=== PATIENT | female | born 1990 | race Caucasian/White ===

== ENCOUNTER 2019-01-20 20:35 | Inpatient (IN) | payer OTHER ==
[2019-01-20] MEDS: DEXTROSE 5%-LACTATED RINGERS 1,000 ML IV SCH (21:00)
[2019-01-20] MEDS ORDERED: DINOPROSTONE 10 MG VAGINAL SUPPOSITORY VG ONE (21:17)
--- NOTE | 2019-01-20 21:23 | HP ---
Past Medical History - Admission Chief Complaint: Rupture of membrane History of Present Illness: 28 yo , @ 38 weeks gestation, EDC 02/02/19, admitted for spontaneous rupture of membrane. Upon admission there was gross pooling and cervix was 1-2cm dilated. History Source: Patient Limitations to Obtaining History: No Limitations - Past Medical History ...: 2 ...Para: 0 ...EDC by Sono: 02/02/19 - Past Surgical History Past Surgical History: Yes: None Hx Myomectomy: No Hx Transabdominal Cerclage: No - Alcohol/Substance Use Hx Alcohol Use: No History of Substance Use: reports: None - Social History Usual Living Arrangement: Yes: With Significant Other History of Recent Travel: No Home Medications - Allergies Allergies/Adverse Reactions: Allergies Allergy/AdvReac Type Severity Reaction Status Date / Time No Known Allergies Allergy Verified 01/20/19 20:57 - Home Medications Home Medications: Ambulatory Orders Acetaminophen [Tylenol -] 1,000 mg PO PRN PRN 01/16/19 Metoclopramide HCl [Reglan] 5 mg PO PRN PRN 01/16/19 Pnv No.95/Ferrous Fum/Folic AC [ Vitamin Tablet] 1 each PO DAILY Family Medical History Family History: Unremarkable Review of Systems - Review of Systems Constitutional: reports: No Symptoms Eyes: reports: No Symptoms HENT: reports: No Symptoms Neck: reports: No Symptoms Cardiovascular: reports: No Symptoms Respiratory: reports: No Symptoms Gastrointestinal: reports: No Symptoms Genitourinary: reports: Other (Leakage of fluid) Breasts: reports: No Symptoms Reported Musculoskeletal: reports: No Symptoms Integumentary: reports: No Symptoms Neurological: reports: No Symptoms Endocrine: reports: No Symptoms Hematology/Lymphatic: reports: No Symptoms Psychiatric: reports: No Symptoms Pain Intensity: 0 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 - Maternity Constitutional: Yes: Well Nourished Eyes: Yes: Conjunctiva Clear HENT: Yes: Atraumatic Neck: Yes: Supple Cardiovascular: Yes: Regular Rate and Rhythm Lungs: Clear to auscultation Breast(s): Yes: WNL - Abdominal Exam/OB Number of Fetuses: Single Presentation: Vertex Contractions: No - Vaginal Exam/OB Dilatation (cm): 2 Effacement (%): 60 Amniotic Membrane Status: Ruptured Amniotic Fluid: Yes: Clear Presentation: Vertex/Position Station: -2 - 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 Musculoskeletal: Yes: WNL ...Motor Strength: WNL Psychiatric: Yes: Alert, Oriented Problem List - Problems (1) 38 weeks gestation of Problems reviewed: Yes Code(s): Z3A.38 - 38 WEEKS GESTATION OF (2) Spontaneous rupture of amniotic membranes Problems reviewed: Yes Code(s): OVW9708 - Assessment/Plan 38 weeks gestation Spontaneous rupture of membrane Admit to L&D Cervidil induction
[2019-01-20 21:43] LABS: BASO % 0.2 % (0-2.0); EOS % 0.8 % (0-4.5); HEMATOCRIT 32.2 % (32.4-45.2); HEMOGLOBIN 10.9 GM/dL (10.7-15.3); LYMPH % 15.7 % (8-40); MCH 30.7 pg (25.7-33.7); MEAN CELL VOLUME 90.2 fl (80-96); MEAN PLT VOLUME 8.5 fl (7.5-11.1); MONO % 9.4 % (3.8-10.2); NEUT % 73.9 % (42.8-82.8); PLATELET COUNT 284 K/MM3 (134-434); RBC 3.57 M/mm3 (3.60-5.2); RDW 14.8 % (11.6-15.6); WHITE BLOOD COUNT 14.2 K/mm3 (4.0-10.0)
[2019-01-20 21:54] LABS: INR 1.04 (0.83-1.09); PROTHROMBIN TIME (PATIENT) 12.3 SEC (9.7-13.0)
[2019-01-20 21:57] LABS: ACTIVATED PTT 25.6 SECONDS (25.2-36.5)
--- NOTE | 2019-01-20 22:04 | PN ---
Progress Note (SOAP) - Subjective Chief Complaint: I was asked by Dr. Diaz to begin induction for this pt. I reviewed the chart, labs, US reports, clinical data. I discussed the info and plan of care with the pt. She is a 28yo P0 with at EGA 38w1 who presented to L&D with PROM since 8pn with clear fluid. The pt is comfortable, no contractions, no complaints, not in labor. care complicated by maternal obesity. - Current Medications Current Medications: Active Medications Dextrose/Lactated Ringer's (D5-Lr -) 1,000 mls @ 125 mls/hr IV ASDIR [facility] Last Admin: 01/20/19 21:00 Dose: 125 mls/hr - Objective Vital Signs: BP 133/69. T98.2, pulse 98 Constitutional: Yes: No Distress, Calm, Obese Eyes: Yes: WNL Cardiovascular: Yes: WNL Respiratory: Yes: WNL Gastrointestinal: Yes: WNL Genitourinary: Yes: Other (leaking clear fluids, gynecoid pelvimetry, EFW ~ 3100g by Arpan's maneuvers. Cervix 2cm, 50%, -2) Musculoskeletal: Yes: WNL Extremities: Yes: WNL Edema: No Integumentary: Yes: WNL Neurological: Yes: WNL, Alert, Oriented ...Motor Strength: Yes: WNL Psychiatric: Yes: WNL, Alert, Oriented Additional Findings/Remarks: FHT baseline 140, moderate variability, (+) acels, no decels. <Mg Christian - Last Filed: 01/20/19 22:22> - Current Medications Current Medications: Active Medications Acetaminophen (Tylenol -) 650 mg PO Q3H PRN PRN Reason: PAIN Last Admin: 01/22/19 13:50 Dose: 650 mg Benzocaine (Americaine 20% Uledi -) 1 spray TP PRN PRN PRN Reason: PAIN Last Admin: 01/21/19 23:29 Dose: 1 spray Benzocaine (Americaine Ointment -) 1 applic TP PRN PRN PRN Reason: PAIN Bisacodyl (Dulcolax Suppository -) 10 mg RC PRN PRN PRN Reason: CONSTIPATION Ferrous Sulfate (Feosol -) 325 mg PO BID [facility] Last Admin: 01/22/19 09:43 Dose: 325 mg Dextrose/Lactated Ringer's (D5-Lr -) 1,000 mls @ 125 mls/hr IV ASDIR [facility] Last Admin: 01/22/19 01:04 Dose: Not Given Oxytocin/Sodium Chloride (Normal Saline+20 Units Oxytocin -) 20 unit in 1,000 mls @ 125 mls/hr IV ASDIR [facility] Last Admin: 01/22/19 04:00 Dose: 125 mls/hr Ibuprofen (Motrin -) 600 mg PO Q4H PRN PRN Reason: PAIN Last Admin: 01/22/19 13:51 Dose: 600 mg Methylergonovine Maleate (Methergine Injection -) 0.2 mg IM Q4H PRN PRN Reason: EXCESSIVE BLEEDING (L&D) Naloxone HCl (Narcan -) 0.4 mg IVPUSH PRN PRN PRN Reason: Sedation Multivit/Folic Acid/Iron ( Vitamins (Sjr) -) 1 tab PO DAILY [facility] Last Admin: 01/22/19 09:43 Dose: 1 tab Senna/Docusate Sodium (Pericolace -) 2 tablet PO HS PRN PRN Reason: CONSTIPATION Witch María/Glycerin (Tucks Pads -) 1 pad TP PRN PRN PRN Reason: PAIN Last Admin: 01/22/19 05:24 Dose: 1 canister - Objective Vital Signs: Vital Signs Temperature 97.7 F 01/22/19 08:57 Pulse Rate 83 01/22/19 08:57 Respiratory Rate 18 01/22/19 08:57 Blood Pressure 110/59 L 01/22/19 08:57 O2 Sat by Pulse Oximetry (%) 98 01/21/19 20:30 <Jessica Diaz - Last Filed: 01/22/19 15:12> Labs Lab Results: CBC, BMP 01/20/19 21:08 <Mg Christian - Last Filed: 01/20/19 22:22> Lab Results: CBC, BMP 01/22/19 07:09 01/20/19 21:08 <Jessica Diaz - Last Filed: 01/22/19 15:12> Imaging - Results Ultrasound: Report Reviewed <Mg Christian - Last Filed: 01/20/19 22:22> Problem List - Problems (1) 38 weeks gestation of Problems reviewed: Yes Code(s): Z3A.38 - 38 WEEKS GESTATION OF (2) Spontaneous rupture of amniotic membranes Problems reviewed: Yes Code(s): [id number] - <Jessica Diaz - Last Filed: 01/22/19 15:12> Assessment/Plan 28yo P0 with at EGA 38w1 who presented to L&D with PROM since 8pn with clear fluid. Labor- pt is comfortable, no contractions, no complaints, not in labor. No contraindications to indx. Fetus- with Category I tracing Pelvis- gynecoid, adequate for this baby Plan: We had long discussion re: risks, benefits, and alternatives of labor induction. I explained the options of expectant management awaiting spontaneous labor, induction of labor, and elective section. The risks of uterine tachysystole, distress, uterine rupture, need for emergency C/S, hemorrhage, infection, scarring, etc. were discussed. We also discussed the risks of meconium aspiration, shoulder dystocia, and anesthesia options. After the pt considered her options and discussed with partner, she requested to proceed with induction. We discussed the alternative methods of induction with Cervidil, Cytotec, Folley ballon, and pitocin. The pt prefers Cervidil followed by pitocin, if needed. Further care and management is per patient's primary Ob, Dr. Diaz. <Mg Christian - Last Filed: 01/20/19 22:22> 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 - 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 Pelvic Exam: Yes: external exam normal <Mg Christian - Last Filed: 01/20/19 22:22> - 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 Neck: Yes: Trachea midline <Jessica Diaz - Last Filed: 01/22/19 15:12>
[2019-01-20 22:10] LABS: BLOOD UREA NITROGEN 5.4 mg/dL (7-18); CALCIUM 8.6 mg/dL (8.5-10.1); CREATININE 0.6 mg/dL (0.55-1.3); POTASSIUM 3.6 mmol/L (3.5-5.1)
[2019-01-20 22:16] VITALS: BMI 37.8
[2019-01-21] MEDS ORDERED: OXYTOCIN 30 UNITS in 0.9% NS 30 UNIT/500 ML INFUS.BAG IVPB ONE (05:55)
[2019-01-21] MEDS ORDERED: OXYTOCIN 30 UNITS in 0.9% NS 30 UNIT/500 ML INFUS.BAG IVPB SCH (06:00)
[2019-01-21 07:47] LABS: POC NITRAZINE POS
[2019-01-21] MEDS ORDERED: FENTANYL/BUPIVACAINE/NS/PF - PCEA - 50 ML DISP.SYRIN EP ONE ×2 (09:30→14:43)
[2019-01-21] MEDS ORDERED: LIDO 2%/EPI 1:200000 PRESRVFRE (20 ML SDVIAL) ONE (09:47)
[2019-01-21] MEDS ORDERED: BUPIVACAINE HCL/PF 2.5 MG/ML - 30 ML VIAL IJ ONE (09:48)
[2019-01-21] MEDS ORDERED: EPINEPHrine/PF 1 MG/1 ML (1:1,000) AMPULE ONE (10:18)
[2019-01-21] MEDS ORDERED: PHENYLEPHRINE HCL 10 MG/1 ML SINGLE DOSE VIAL ONE (10:21)
[2019-01-21] MEDS ORDERED: NALOXONE HCL 0.4 MG/ML VIAL IVPUSH PRN (10:24)
[2019-01-21] MEDS ORDERED: FENTANYL/BUPIVACAINE/NS/PF - PCEA - 50 ML DISP.SYRIN EP SCH (10:30)
[2019-01-21] MEDS ORDERED: ACETAMINOPHEN 325 MG TABLET (FP) ONE (12:41)
[2019-01-21] MEDS ORDERED: ACETAMINOPHEN 325 MG TABLET (FP) PO ONE (13:00)
[2019-01-21] MEDS ORDERED: AMPICILLIN - 2 GM in SODIUM CHLORIDE 100 ML IVPB ONE ×2 (14:00→14:45)
[2019-01-21] MEDS ORDERED: AMPICILLIN SODIUM 2 GM VIAL ONE (14:01)
[2019-01-21] MEDS ORDERED: AMPICILLIN - 1 GM in SODIUM CHLORIDE 100 ML IVPB SCH (15:15)
[2019-01-21] MEDS ORDERED: LIDOCAINE HCL 1% PRESERVATIVE FREE - 30ML VIAL ONE (17:29)
[2019-01-21] MEDS ORDERED: AMPICILLIN SODIUM 1 GM VIAL ONE (17:30)
[2019-01-21] MEDS: AMPICILLIN - 1 GM in SODIUM CHLORIDE 100 ML IVPB SCH ×2 (17:30→23:26)
[2019-01-21] MEDS ORDERED: OXYTOCIN 20 UNITS in 0.9% NS 20 UNIT/1,000 ML INFUS.BAG IV ONE (18:48)
[2019-01-21] MEDS ORDERED: BUTORPHANOL TARTRATE 1 MG/ML VIAL ONE (19:05)
[2019-01-21] MEDS ORDERED: PROMETHAZINE HCL 25 MG/1 ML VIAL ONE (19:05)
[2019-01-21] MEDS ORDERED: BENZOCAINE 28 GM HEMORRHOIDAL OINTMENT TP PRN (19:19)
[2019-01-21] MEDS ORDERED: METHYLERGONOVINE MALEATE 0.2 MG/1 ML AMP IM PRN (19:19)
[2019-01-21] MEDS ORDERED: WITCH HAZEL 50% (TUCKS) 40 PAD/JAR PAD TP PRN (19:19)
[2019-01-21] MEDS ORDERED: BISACODYL 10 MG SUPP.RECT RC PRN (19:19)
--- NOTE | 2019-01-21 19:23 | PN ---
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 Nose / Oropharynx suctioned @ perineum. Cord clamped and cut. Baby handed to nurse. Placenta expelled spontaneously intact. Posterior wall of the vaginal repaired with 2.0 chromic. Mother in stable condition.
[2019-01-21] MEDS: OXYTOCIN 20 UNITS in 0.9% NS 20 UNIT/1,000 ML INFUS.BAG IV SCH (19:30)
[2019-01-21] MEDS ORDERED: PROMETHAZINE HCL 25 MG/1 ML VIAL IVPUSH ONE (21:15)
[2019-01-21] MEDS ORDERED: BUTORPHANOL TARTRATE 1 MG/ML VIAL IVPUSH ONE (21:15)
[2019-01-21] MEDS: FERROUS SO4 325 MG TABLET (FP) PO SCH (23:28)
[2019-01-21] MEDS: BENZOCAINE 20% 57 GM BOTTLE TP PRN (23:29)
[2019-01-21] MEDS: IBUPROFEN 600 MG TABLET (FP) PO PRN (23:33)
[2019-01-22] MEDS: DEXTROSE 5%-LACTATED RINGERS 1,000 ML IV SCH (01:04)
[2019-01-22] MEDS: IBUPROFEN 600 MG TABLET (FP) PO PRN ×4 (03:56→19:07)
[2019-01-22] MEDS: OXYTOCIN 20 UNITS in 0.9% NS 20 UNIT/1,000 ML INFUS.BAG IV SCH (04:00)
[2019-01-22 07:49] LABS: BASO % 0.1 % (0-2.0); EOS % 0.5 % (0-4.5); HEMATOCRIT 29.6 % (32.4-45.2); HEMOGLOBIN 9.8 GM/dL (10.7-15.3); LYMPH % 9.8 % (8-40); MCH 30.1 pg (25.7-33.7); MCHC 33.2 g/dl (32.0-36.0); MEAN CELL VOLUME 90.4 fl (80-96); MEAN PLT VOLUME 8.5 fl (7.5-11.1); MONO % 12.6 % (3.8-10.2); PLATELET COUNT 250 K/MM3 (134-434); RBC 3.27 M/mm3 (3.60-5.2); RDW 14.6 % (11.6-15.6); WHITE BLOOD COUNT 16.7 K/mm3 (4.0-10.0)
[2019-01-22] MEDS: ACETAMINOPHEN 325 MG TABLET (FP) PO PRN ×2 (08:26→13:50)
[2019-01-22] MEDS: PRENATAL VITAMINS W/ FOLIC ACID TABLET (FP) PO SCH (09:43)
[2019-01-22] MEDS: FERROUS SO4 325 MG TABLET (FP) PO SCH ×2 (09:43→22:04)
--- NOTE | 2019-01-22 15:25 | PN ---
Post Progress Note Post Day: 1 Type of Delivery: Vital Signs: Vital Signs Temperature 97.7 F 01/22/19 08:57 Pulse Rate 83 01/22/19 08:57 Respiratory Rate 18 01/22/19 08:57 Blood Pressure 110/59 L 01/22/19 08:57 O2 Sat by Pulse Oximetry (%) 98 01/21/19 20:30 Breast Exam: Yes: Soft Uterus: Yes: Fundus Firm Abdomen/GI: Yes: Abdomen soft, Tolerating PO Lochia: Yes: Rubra Lochia, amount: Moderate Extremities: Yes: Calves non-tender Perineum: Yes: Laceration (Healing wound) Activity: Ambulating - Labs Labs: CBC WBC 16.7 K/mm3 (4.0-10.0) H 01/22/19 07:09 RBC 3.27 M/mm3 (3.60-5.2) L 01/22/19 07:09 Hgb 9.8 GM/dL (10.7-15.3) L 01/22/19 07:09 Hct 29.6 % (32.4-45.2) L 01/22/19 07:09 MCV 90.4 fl (80-96) 01/22/19 07:09 MCH 30.1 pg (25.7-33.7) 01/22/19 07:09 MCHC 33.2 g/dl (32.0-36.0) 01/22/19 07:09 RDW 14.6 % (11.6-15.6) 01/22/19 07:09 Plt Count 250 K/MM3 (134-434) 01/22/19 07:09 MPV 8.5 fl (7.5-11.1) 01/22/19 07:09 Absolute Neuts (auto) 12.9 K/mm3 (1.5-8.0) H 01/22/19 07:09 Neutrophils % 77.0 % (42.8-82.8) 01/22/19 07:09 Lymphocytes % 9.8 % (8-40) D 01/22/19 07:09 Monocytes % 12.6 % (3.8-10.2) H 01/22/19 07:09 Eosinophils % 0.5 % (0-4.5) 01/22/19 07:09 Basophils % 0.1 % (0-2.0) 01/22/19 07:09 Nucleated RBC % 0 % (0-0) 01/22/19 07:09 Problem List - Problems (1) 38 weeks gestation of Problems reviewed: Yes Code(s): Z3A.38 - 38 WEEKS GESTATION OF (2) Spontaneous rupture of amniotic membranes Problems reviewed: Yes Code(s): QCF8463 - (3) Status post normal vaginal delivery Problems reviewed: Yes Code(s): [id number] - Assessment/Plan Status post vaginal delivery Stable Continue routine care
[2019-01-22] MEDS ORDERED: SENNOSIDES/DOCUSATE COMBO (SENNA PLUS) TABLET (UD) PO PRN (22:00)
[2019-01-23] MEDS: ACETAMINOPHEN 325 MG TABLET (FP) PO PRN (07:37)
[2019-01-23] MEDS: BENZOCAINE 20% 57 GM BOTTLE TP PRN (07:38)
[2019-01-23] MEDS: IBUPROFEN 600 MG TABLET (FP) PO PRN (07:38)
[2019-01-23 08:44] VITALS: BP 121/66; PULSE 80; TEMP 98.3
[2019-01-23] MEDS: FERROUS SO4 325 MG TABLET (FP) PO SCH (09:02)
[2019-01-23] MEDS: PRENATAL VITAMINS W/ FOLIC ACID TABLET (FP) PO SCH (09:02)
--- NOTE | 2019-01-23 09:14 | DS ---
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 Vital Signs: Vital Signs Temperature 98.3 F 01/23/19 08:43 Pulse Rate 80 01/23/19 08:43 Respiratory Rate 20 01/23/19 08:43 Blood Pressure 121/66 01/23/19 08:43 O2 Sat by Pulse Oximetry (%) 98 01/21/19 20:30 Constitutional: Yes: Well Nourished Eyes: Yes: Conjunctiva Clear HENT: Yes: Atraumatic Neck: Yes: Supple Cardiovascular: Yes: Regular Rate and Rhythm Respiratory: Yes: Regular Gastrointestinal: Yes: Normal Bowel Sounds Pelvis: Yes: WNL External Genitalia: Yes: Normal Vaginal Exam: Yes: Normal Cervix: Yes: Normal Uterus: Yes: Firm ....Post : Yes: Uterus firm, Moderate lochia serosa Breast(s): Yes: WNL Musculoskeletal: Yes: WNL Extremities: Yes: WNL Neurological: Yes: Alert, Oriented ...Motor Strength: WNL Psychiatric: Yes: Alert, Oriented Labs: CBC, BMP 01/22/19 07:09 01/20/19 21:08 Delivery - Delivery Vaginal Delivery: Spontaneous Type of Anesthesia: Epidural Episiotomy/Laceration: 2nd degree EBL (cc): 300 Delivery, Single - Stages of Labor Date 1st Stage Initiatied: 01/21/19 Time 1st Stage Initiated: 09:45 Date 2nd Stage Initiated: 01/21/19 Time 2nd Stage Initiated: 18:10 Date of Delivery: 01/21/19 Time of Delivery: 18:42 Time Placenta Delivered: 18:47 - Condition of Emission Technician/Security Public Safety Officer Present: No Gender: Male Weight: 8 lb 9 oz Total Hours ROM (Hrs/Mins): 22hrs/47mins - 1 Minute Total Score: 9 5 Minutes Total Score: 9 - Feeding Plan Initial Plan: Exclusive throughout hospitalization Discharge Summary Problems reviewed: Yes Reason For Visit: LABOR Current Active Problems 38 weeks gestation of (Acute) Spontaneous rupture of amniotic membranes (Acute) Status post normal vaginal delivery (Acute) Procedures: Principal: Normal spontaneous vaginal delivery Hospital Course: Routine care Health Concerns: None Plan of Treatment: follow up in 6 weeks Continue vitamins Continue iron Goals: Resume normal activities Condition: Good - Instructions Diet, Activity, Other Instructions: Regular diet No douching, no sexual intercourse x 6 weeks F/U with MD in 6 weeks Disposition: HOME - Home Medications Comprehensive Discharge Medication List: Ambulatory Orders Acetaminophen [Tylenol -] 1,000 mg PO PRN PRN 01/16/19 Metoclopramide HCl [Reglan] 5 mg PO PRN PRN 01/16/19 Pnv No.95/Ferrous Fum/Folic AC [ Vitamin Tablet] 1 each PO DAILY
== END 2019-01-23 10:25 | disposition home or self-care (01) | DRG 560 ==
LOC: JLDR 20:35 → J3W 01-21 22:21
PROVIDERS: ADMIT Obstetrics & Gynecology; ATTEND Obstetrics & Gynecology
PROC: 10E0XZZ Delivery of Products of Conception, External Approach (ICD-10-PCS; principal; 2019-01-21)
PROC: 0KQM0ZZ Repair Perineum Muscle, Open Approach (ICD-10-PCS; 2019-01-21)
DX: O70.1 Second degree perineal laceration during delivery (principal); Z3A.38 38 weeks gestation of pregnancy; Z37.0 Single live birth
CPT/HCPCS: 36415; 59409; 80048; 83986-QW; 85025; 85461; 85610; 85730; 86593; 86850; 86900; 86901; 86999